=== PATIENT | male | born 1965 | race Two or more races ===

== ENCOUNTER 2020-01-19 10:56 | Outpatient (CLI) | payer OTHER | END 2020-01-19 11:05 | disposition home or self-care (01) | LOC: LAB 10:56 | PROVIDERS: ATTEND General Practice | DX: Z00.8 Encounter for other general examination (principal); Z12.11 Encounter for screening for malignant neoplasm of colon; Z12.5 Encounter for screening for malignant neoplasm of prostate; Z13.6 Encounter for screening for cardiovascular disorders ==

== ENCOUNTER → 2020-01-19 | Outpatient (CLI) | payer OTHER | END | disposition home or self-care (01) | LOC: LAB SALUS 08:39 | PROVIDERS: ATTEND General Practice | DX: Z11.4 Encounter for screening for human immunodeficiency virus [HIV] (principal); Z12.11 Encounter for screening for malignant neoplasm of colon; Z72.51 High risk heterosexual behavior; Z11.3 Encounter for screening for infections with a predominantly sexual mode of transmission; Z11.59 Encounter for screening for other viral diseases; Z13.1 Encounter for screening for diabetes mellitus; Z13.220 Encounter for screening for lipoid disorders ==